=== PATIENT | female | born 2000 | race Caucasian/White ===

== ENCOUNTER 2018-01-09 15:24 | Emergency (ER) | payer OTHER ==
[~2018-01-09] VITALS: Ht 160 cm; Wt 63.5 kg
[2018-01-09] MEDS ORDERED: MELATONIN10 M2 PO (15:54)
[2018-01-09] MEDS ORDERED: ZYRTEC10 M3 PO (15:54)
--- NOTE | 2018-01-10 12:48 | EKG ---
[facility] [address] [facility] [place], [place] [address] Signed Sinus tachycardia Otherwise normal ECG No previous ECGs available Confirmed by LULU FAGAN DO ([id number]) on 01/10/2018 12:48:08 PM Electronically Signed By: LULU FAGAN DO 01/10/18 1248 PATIENT NAME: GERARDO ESTRADA Electrocardiogram DATE OF : [birth year] PHYSICIAN: LULU FAGAN DO REPORT #: [id number] REPORT IS CONFIDENTIAL AND NOT TO BE RELEASED WITHOUT AUTHORIZATION
== END 2018-01-09 17:30 | disposition home or self-care (01) ==
LOC: ED 15:24
DX: R55 Syncope and collapse (principal); Z88.0 Allergy status to penicillin; Z79.899 Other long term (current) drug therapy
CPT/HCPCS: 80053; 81001; 84703; 85025; 93005; 93010; 96360; 99284; J7030